=== PATIENT | female | born 1965 | race American Indian/Alaskan Native ===

== ENCOUNTER 2017-01-21 00:03 | Emergency (ER) | payer MEDICAID ==
[2017-01-21 01:30] LABS: Basophils % (Auto) 0.5 % (0.0-1.8); Hematocrit 42.3 % (30.3-42.9); Hemoglobin 14.1 gm/dl (10.1-14.3); Mean Corpuscular HGB Conc 33 % (30-34); Mean Corpuscular Hemoglobin 30 pg (28-32); Mean Corpuscular Volume 90 fl (79-97); Platelet Count 306 K/mm3 (140-440); Red Blood Count 4.68 M/mm3 (3.65-5.03); Red Cell Distribution Width 13.4 % (13.2-15.2); White Blood Count 17.9 K/mm3 (4.5-11.0)
[2017-01-21 01:48] LABS: Alanine Aminotransferase 16 units/L (7-56); Albumin 4.8 g/dL (3.9-5); Albumin/Globulin Ratio 1.5 %; Alkaline Phosphatase 80 units/L (35-129); Anion Gap 21 mmol/L; BUN/Creatinine Ratio 16.66; Blood Urea Nitrogen 15 mg/dL (7-17); Calcium 9.8 mg/dL (8.4-10.2); Carbon Dioxide 23 mmol/L (22-30); Glucose 104 mg/dL (65-100); Lipase 16 units/L (13-60); Potassium 3.6 mmol/L (3.6-5.0); Sodium 140 mmol/L (137-145); Total Protein 7.9 g/dL (6.3-8.2)
[2017-01-21 04:52] LABS: Urine Drugs of Abuse Note Disclamer
[2017-01-21 05:20] LABS: Bacteria,Urine 1+ /HPF (Negative); Bilirubin,Urine NEG (Negative); Blood,Urine SM (Negative); Ketones,Urine TR mg/dL (Negative); Leukocyte Esterase,Urine MOD (Negative); Nitrite,Urine NEG (Negative); Urobilinogen,Urine < 2.0 mg/dL (<2.0)
[2017-01-21 06:11] LABS: INR 0.96 (0.87-1.13)
--- NOTE | 2017-01-21 08:22 | Emergency Department Report ---
HPI - General Chief Complaint: Abdominal Pain Time Seen by Provider: 01/21/17 08:05 - HPI HPI: This is a 51-year-old Afro-Surinamese female presents to the emergency department with the need for a medical clearance/evaluation so that she can go to [facility] for detox for opiates, marijuana, cocaine, basically polysubstance abuse. She last was using late last night and early and this morning. Right now she just complains of feeling cold. She has a slightly chronic cough with some yellowish sputum. She denies any fever, chest pain, nausea, vomiting, diaphoresis. No recent travel or sick contacts at home. She has a history of hypertension. She does not have a primary care doctor. She has not taken anything for symptoms prior to presentation. No recent travel. Her boyfriend is being seen here with a chronic upper respiratory infection. ED Past Medical Hx - Past Medical History Previous Medical History?: Yes Hx Hypertension: Yes Additional medical history: Thyroid. Prolapsed Uterus - Surgical History Past Surgical History?: No - Social History Smoking Status: Current Every Day Smoker Substance Use Type: Alcohol, Heroin, Marijuana, Prescribed, Other ED Review of Systems ROS: Stated complaint: MED CLEARANCE Other details as noted in HPI Constitutional: chills. denies: fever Eyes: denies: eye pain, eye discharge, vision change ENT: denies: ear pain, throat pain Respiratory: cough. denies: shortness of breath Cardiovascular: denies: chest pain, palpitations Gastrointestinal: denies: abdominal pain, nausea, diarrhea Genitourinary: denies: urgency, dysuria, discharge Musculoskeletal: denies: back pain, joint swelling, arthralgia Skin: denies: rash, lesions Neurological: denies: headache, weakness, paresthesias Physical Exam - Physical Exam Vital Signs: Vital Signs 01/21/17 00:25 Temperature 98.4 F Pulse Rate 102 H Respiratory 20 Rate Blood Pressure 143/98 [Right] O2 Sat by Pulse 98 Oximetry Physical Exam: GENERAL: The patient is well-developed well-nourished. HEENT: Normocephalic. Atraumatic. Extraocular motions are intact. Patient has moist mucous membranes. Pupils equal reactive to light bilaterally. NECK: Supple. Trachea is mid line. CHEST/LUNGS: Clear to auscultation. There is no respiratory distress noted. HEART/CARDIOVASCULAR: Regular. There is no tachycardia. There is no gallop rub or murmur. ABDOMEN: Abdomen is soft, nontender. Patient has normal bowel sounds. There is no abdominal distention. SKIN: Skin is warm and dry. NEURO: The patient is awake, alert, and oriented. The patient is cooperative. The patient has no focal neurologic deficits. The patient has normal speech. Normal gait. MUSCULOSKELETAL: There is no tenderness or deformity. There is no limitation range of motion. There is no evidence of acute injury. ED Course Vital Signs 01/21/17 00:25 Temperature 98.4 F Pulse Rate 102 H Respiratory 20 Rate Blood Pressure 143/98 [Right] O2 Sat by Pulse 98 Oximetry ED Medical Decision Making - Lab Data Result diagrams: 01/21/17 01:11 01/21/17 01:11 - Radiology Data Radiology results: image reviewed interpreted by me: Chest x-ray did not show any acute process. Heart is normal shape and size. No effusions. No pneumothorax. No signs of pneumonia seen. - Medical Decision Making 51-year-old female presents to the emergency department mostly to be medically cleared so she can go to [facility] for detox from polysubstance abuse. She complains of an occasional cough with some productive sputum so a chest x-ray was done but does not show any pneumonia or any acute process. Vital signs stable throughout her ED course. Patient's labs are mostly unremarkable other than leukocytosis and urine drug screen. The UDS is positive for cocaine, marijuana, but that she and opiates. The patient has a leukocytosis of 17,000. However vital signs are stable including being afebrile. There is no sign of infection seen in the chest x-ray or urinalysis and the patient does not appear to have an active infection. I believe most likely the leukocytosis is her bodies response to the polysubstance abuse and/or withdrawal. Otherwise she appears medically cleared to go to an inpatient facility if she should chooses to do so. The crisis therapist checked on [facility] and the patient is not known but with her insurance they say she can walk and for intake evaluation if she wants to pursue detoxification. Patient does appear to want help and says she is going straight there. She's been encouraged to return to the ER with any acute distress. Critical Care Time: No Critical care attestation.: If time is entered above; I have spent that time in minutes in the direct care of this critically ill patient, excluding procedure time. ED Disposition Clinical Impression: Polysubstance abuse Disposition: DISCHARGED TO HOME OR SELFCARE Is pt being admited?: No Condition: Stable Instructions: Upper Respiratory Infection (ED), Polysubstance Abuse (ED) Additional Instructions: Please go straight to [facility] to see about help with your substance abuse detoxification. Return to the emergency department with any worsening of your symptoms or any acute distress. Please follow-up with a primary care doctor once you are able to do so. Referrals: [facility] [Outside] - 3-5 Days Time of Disposition: 09:49
[2017-01-21 10:01] VITALS: BP 138/92
--- NOTE | 2017-01-21 11:08 | XRay Report ---
PA and lateral chest: Cough. Routine views demonstrate mild thoracic spondylosis. On the frontal projection the lungs are clear and the hilar and mediastinal structures are unremarkable. There is no vascular congestion. In the lateral view there is a sharply defined smooth projection extending posterior from the posterior cardiac contour just below the hilum. It is unclear exactly what this represents but most likely is a vascular structure. I have no prior exams for comparison. Impression: Indeterminate finding in lateral projection as described. Comparison with any prior exams recommended if these can be made available. If not, consider CT scan to exclude pathology.
== END 2017-01-21 10:00 | disposition home or self-care (01) ==
LOC: ED 00:03
DX: F19.10 Other psychoactive substance abuse, uncomplicated (principal); I10 Essential (primary) hypertension; F17.200 Nicotine dependence, unspecified, uncomplicated; F12.10 Cannabis abuse, uncomplicated; F11.10 Opioid abuse, uncomplicated
CPT/HCPCS: 36415; 71020; 80053; 80307; 81001; 81025; 82140; 82805; 83690; 84443; 85025; 85610; 87040; 87086; 99284; G0480; 80320

== ENCOUNTER 2017-05-11 23:54 | Emergency (ER) | payer SELFPAY ==
[2017-05-12 00:57] LABS: Hematocrit 39.5 % (30.3-42.9); Hemoglobin 13.7 gm/dl (10.1-14.3); Mean Corpuscular HGB Conc 35 % (30-34); Mean Corpuscular Hemoglobin 31 pg (28-32); Mean Corpuscular Volume 91 fl (79-97); Platelet Count 255 K/mm3 (140-440); Red Blood Count 4.36 M/mm3 (3.65-5.03); Red Cell Distribution Width 13.1 % (13.2-15.2); White Blood Count 9.4 K/mm3 (4.5-11.0)
[2017-05-12 01:18] LABS: Alanine Aminotransferase 21 units/L (7-56); Albumin 4.5 g/dL (3.9-5); Albumin/Globulin Ratio 1.6 %; Alkaline Phosphatase 83 units/L (35-129); Anion Gap 17 mmol/L; BUN/Creatinine Ratio 15.71; Blood Urea Nitrogen 11 mg/dL (7-17); Calcium 8.9 mg/dL (8.4-10.2); Carbon Dioxide 27 mmol/L (22-30); Chloride 100.5 mmol/L (98-107); Glucose 90 mg/dL (65-100); Lipase 64 units/L (13-60); Potassium 4.2 mmol/L (3.6-5.0); Sodium 140 mmol/L (137-145); Total Protein 7.3 g/dL (6.3-8.2)
[2017-05-12 02:22] LABS: Basophils % (Manual) 0 % (0.0-1.8); Blastocytes % (Manual) 0 %; Eosinophils % (Manual) 0 % (0.0-4.3); Giant Platelets Rare; RBC Morphology Normal
[2017-05-12 02:23] LABS: Diff Status Complete
--- NOTE | 2017-05-12 09:18 | Cat Scan Report ---
CT OF THE ABDOMEN AND PELVIS WITHOUT CONTRAST HISTORY: Abdominal pain. TECHNIQUE: Helical CT without contrast. Sagittal and coronal reformatted images. FINDINGS: Within the limits of a noncontrast exam, the abdominal and pelvic viscera are within normal limits. The liver, biliary system, pancreas, spleen, kidneys, adrenal glands and bladder are unremarkable. The bowel loops are normal caliber and wall thickness. Normal appendix. The aorta is normal caliber. No ascites, bulky adenopathy or inflammatory changes. The lung bases are clear. Normal heart size. No suspicious bony lesion. IMPRESSION: Unremarkable noncontrast CT of the abdomen and pelvis.
--- NOTE | 2017-05-12 09:48 | Emergency Department Report ---
ED Abdominal Pain HPI - General Chief Complaint: Abdominal Pain Stated Complaint: AB PAIN/ MEDICAL CLEARNACE Time Seen by Provider: 05/12/17 08:00 Source: patient Mode of arrival: Ambulatory Limitations: No Limitations - History of Present Illness MD Complaint: abdominal pain -: month(s) (1) Location: periumbilical Radiation: none Migration to: no migration Severity: mild Severity scale (0 -10): 1 Quality: cramping, aching Consistency: intermittent Improves With: nothing Worsens With: nothing Associated Symptoms: denies: nausea, vomiting, diarrhea, fever, chills, constipation, dysuria, hematemesis, hematochezia, melena, hematuria, anorexia, syncope - Related Data Previous Rx's Medication Instructions Recorded Last Taken Type Penicillin Vk [Veetids TAB] 250 mg PO QID #40 tablet 05/12/17 Unknown Rx Allergies Allergy/AdvReac Type Severity Reaction Status Date / Time prochlorperazine Allergy Swelling Verified 01/21/17 00:53 [From Compazine] prochlorperazine edisylate Allergy Swelling Verified 01/21/17 00:53 [From Compazine] prochlorperazine maleate Allergy Swelling Verified 01/21/17 00:53 [From Compazine] ED Review of Systems ROS: Stated complaint: AB PAIN/ MEDICAL CLEARNACE Other details as noted in HPI Other: GENERAL: No weight change, fatigue, weakness, fever, chills, or night sweats SKIN: No changes in skin or hair, no itching, no rashes, no jaundice HEAD: No trauma, headache, or visual changes EYES: No blurriness, tearing, itching, acute visual loss, conjunctival discoloration, or scleral icterus EARS: No hearing loss, tinnitus, vertigo, or earache NOSE: No rhinorrhea, stuffiness, sneezing, itching, or epistaxis MOUTH: Reports toothache. Last dental visit remote. No bleeding gums, hoarseness, sore throat, or swelling CARDIAC: No new murmur, chest pain, palpitations, dyspnea on exertion, orthopnea , PND, or edema RESPIRATORY: No shortness of breath, wheeze, cough, sputum production, hemoptysis, pneumonia, asthma, bronchitis, or emphysema GI: Abdominal pain. No change in appetite, nausea, vomiting, dysphagia, change in bowel frequency, diarrhea, constipation, bleeding, hematemesis, melena , hematochezia URINARY: No frequency, urgency, polyuria, dysuria, hematuria, or incontinence MUSCULOSKELETAL: No muscle weakness, joint stiffness, decrease in range of motion, redness, swelling NEUROLOGIC: No loss of sensation, numbness, tingling, tremors, weakness, paralysis, seizures HEMATOLOGIC: No anemia, easy bruising, bleeding, petechiae, or purpura ENDOCRINE: No hot or cold intolerance, sweating, polyuria, polydipsia or, polyphagia no thyroid problems PSYCHIATRIC: No change in mood, no anxiety, no depression GENITAL: Female: No change in menstrual regularity, no frequency or dysmenorrhea ED Past Medical Hx - Past Medical History Previous Medical History?: Yes Hx Hypertension: Yes Additional medical history: Thyroid. Prolapsed Uterus - Surgical History Past Surgical History?: No - Social History Smoking Status: Current Every Day Smoker Substance Use Type: Alcohol, Marijuana - Medications Home Medications: Home Medications Medication Instructions Recorded Confirmed Last Taken Type Penicillin Vk [Veetids TAB] 250 mg PO QID #40 tablet 05/12/17 Unknown Rx ED Physical Exam - General Limitations: No Limitations - Other Other exam information: GENERAL: Patient in no acute distress HEAD: Normocephalic, atraumatic EYES: PERRLA, EOM intact, no scleral icterus, visual simpson and acuity wnl NOSE: No tenderness, discharge, sinus tenderness MOUTH: Dental caries. No erythema, bleeding, exudate HEART: Regular rate and rhythm, no murmur, S1-S2 are auscultated, pulses are symmetric LUNGS: No wheezing, rales, rhonchi, bilateral breath sounds ABDOMEN: Normal bowel sounds, no tenderness, no rebound, no guarding, no masses , no CVA tenderness MUSCULOSKELETAL: Normal joint range of motion, no redness, no swelling, no tenderness NEUROLOGIC: GCS 15, Alert and Oriented x3, Cranial nerves intact, normal sensation, normal strength, normal gait, no cerebellar deficit PSYCHIATRIC: Patient being difficult with nursing staff. No homicidal or suicidal ideation, no anxiety, no depression, no hallucinations SKIN: Skin is warm and dry, no wounds, no rashes ED Course Vital Signs 05/12/17 05/12/17 00:23 10:20 Temperature 98.1 F 98.7 F Pulse Rate 79 82 Respiratory 22 20 Rate Blood Pressure 149/98 Blood Pressure 135/70 [Right] O2 Sat by Pulse 95 100 Oximetry ED Medical Decision Making - Lab Data Result diagrams: 05/12/17 00:31 05/12/17 00:31 - Radiology Data Radiology results: report reviewed - Medical Decision Making Patient comfortable. Updated with results. Plan discharge with outpatient follow up. Patient agrees with plan and will return if symptoms worsen. Critical care attestation.: If time is entered above; I have spent that time in minutes in the direct care of this critically ill patient, excluding procedure time. ED Disposition Clinical Impression: Dental caries Abdominal pain Qualifiers: Abdominal location: generalized Qualified Code(s): R10.84 - Generalized abdominal pain Disposition: TO HOME OR SELFCARE Is pt being admited?: No Condition: Stable Instructions: Dental Caries (ED), Abdominal Pain (ED) Prescriptions: Penicillin Vk [Veetids TAB] 250 mg PO QID #40 tablet Referrals: [facility] [Provider Group] - 2-3 Days PRIMARY CARE,MD [Primary Care Provider] - 2-3 Days [facility] [Outside] - 2-3 Days Time of Disposition: 09:46
[2017-05-12 10:14] LABS: Bacteria,Urine 1+ /HPF (Negative); Bilirubin,Urine NEG (Negative); Blood,Urine NEG (Negative); Ketones,Urine NEG (Negative); Leukocyte Esterase,Urine NEG (Negative); Nitrite,Urine NEG (Negative); Protein,Urine <15 mg/dL mg/dL (Negative); RBC,Urine < 1.0 /HPF (0.0-6.0); Urobilinogen,Urine < 2.0 mg/dL (<2.0); WBC,Urine < 1.0 /HPF (0.0-6.0)
[2017-05-12 10:21] VITALS: BP 135/70
== END 2017-05-12 10:36 | disposition home or self-care (01) ==
LOC: ED 23:54
DX: K02.9 Dental caries, unspecified (principal); R10.33 Periumbilical pain; F17.210 Nicotine dependence, cigarettes, uncomplicated; F12.10 Cannabis abuse, uncomplicated; I10 Essential (primary) hypertension; Z88.8 Allergy status to other drugs, medicaments and biological substances
CPT/HCPCS: 36415; 74176; 80053; 81001; 83690; 84703; 85007; 85025; 99284

== ENCOUNTER 2018-04-12 21:22 | Emergency (ER) | payer MEDICAID ==
[2018-04-12 22:58] LABS: Bacteria,Urine 1+ /HPF (Negative); Bilirubin,Urine NEG (Negative); Blood,Urine NEG (Negative); Color,Urine Yellow (Yellow); Protein,Urine <15 mg/dL mg/dL (Negative); Urobilinogen,Urine < 2.0 mg/dL (<2.0)
[2018-04-12 23:14] LABS: Methadone Screen,Urine PRESUMPTIVE NEGATIVE
[2018-04-12 23:27] LABS: Basophils % (Auto) 0.8 % (0.0-1.8); Eosinophils # (Auto) 0.2 K/mm3 (0.0-0.4); Eosinophils % (Auto) 2.4 % (0.0-4.3); Hematocrit 40.8 % (30.3-42.9); Lymphocytes # (Auto) 3.1 K/mm3 (1.2-5.4); Lymphocytes % (Auto) 50.4 % (13.4-35.0); Mean Corpuscular HGB Conc 34 % (30-34); Mean Corpuscular Hemoglobin 32 pg (28-32); Mean Corpuscular Volume 93 fl (79-97); Monocytes # (Auto) 0.3 K/mm3 (0.0-0.8); Monocytes % (Auto) 5.5 % (0.0-7.3); Platelet Count 279 K/mm3 (140-440); Red Blood Count 4.37 M/mm3 (3.65-5.03); Red Cell Distribution Width 13.3 % (13.2-15.2)
[2018-04-12 23:38] LABS: Amphetamine Screen,Urine PRESUMPTIVE POSITIVE; Benzodiazepines Screen,Urine PRESUMPTIVE POSITIVE; Cannabinoid Screen,Urine PRESUMPTIVE POSITIVE; Cocaine Screen,Urine PRESUMPTIVE POSITIVE; Opiate Screen,Urine PRESUMPTIVE POSITIVE
[2018-04-12 23:58] LABS: BUN/Creatinine Ratio 11; Blood Urea Nitrogen 8 mg/dL (7-17); Calcium 9.4 mg/dL (8.4-10.2); Hemolysis Index 9
--- NOTE | 2018-04-13 01:07 | Emergency Department Report ---
ED Medical Clearance HPI - General Chief complaint: Medical Clearance Stated complaint: MH EVAL Time Seen by Provider: 04/13/18 00:58 Source: patient, family Mode of arrival: Ambulatory - History of Present Illness Initial comments: Presents to the ER from [place] for medical clearance. Pt has a history of polysubstance abuse. She last used yesterday. Her drug of choice is narcotics and marijuana. Home medications: Previous Rx's Medication Instructions Recorded Last Taken Type Penicillin Vk [Veetids TAB] 250 mg PO QID #40 tablet 05/12/17 Unknown Rx Dicyclomine [Bentyl] 10 mg PO TID PRN #20 capsule 04/13/18 Unknown Rx Ondansetron [Zofran Odt] 4 mg PO TID PRN #15 tab.rapdis 04/13/18 Unknown Rx cloNIDine [Catapres] 0.2 mg PO TID PRN #15 tablet 04/13/18 Unknown Rx Allergies/Adverse reactions: Allergies Allergy/AdvReac Type Severity Reaction Status Date / Time prochlorperazine Allergy Swelling Verified 01/21/17 00:53 [From Compazine] prochlorperazine edisylate Allergy Swelling Verified 01/21/17 00:53 [From Compazine] prochlorperazine maleate Allergy Swelling Verified 01/21/17 00:53 [From Compazine] ED Review of Systems ROS: Stated complaint: MH EVAL Other details as noted in HPI Comment: All other systems reviewed and negative ED Past Medical Hx - Past Medical History Previous Medical History?: Yes Hx Hypertension: Yes Additional medical history: Thyroid. Prolapsed Uterus - Surgical History Past Surgical History?: No - Social History Smoking Status: Current Every Day Smoker Substance Use Type: Alcohol, Cocaine, Heroin, Marijuana, Non Opiate Pain - Medications Home Medications: Home Medications Medication Instructions Recorded Confirmed Last Taken Type Penicillin Vk [Veetids TAB] 250 mg PO QID #40 tablet 05/12/17 Unknown Rx Dicyclomine [Bentyl] 10 mg PO TID PRN #20 capsule 04/13/18 Unknown Rx Ondansetron [Zofran Odt] 4 mg PO TID PRN #15 tab.rapdis 04/13/18 Unknown Rx cloNIDine [Catapres] 0.2 mg PO TID PRN #15 tablet 04/13/18 Unknown Rx ED Physical Exam - General Limitations: No Limitations General appearance: in no apparent distress, appears intoxicated, lethargic - Head Head exam: Present: atraumatic, normocephalic - Eye Eye exam: Present: normal appearance, PERRL, EOMI - ENT ENT exam: Present: mucous membranes moist - Neck Neck exam: Present: normal inspection - Respiratory Respiratory exam: Present: normal lung sounds bilaterally. Absent: respiratory distress - Cardiovascular Cardiovascular Exam: Present: regular rate, normal rhythm. Absent: systolic murmur, diastolic murmur, rubs, gallop - GI/Abdominal GI/Abdominal exam: Present: soft, normal bowel sounds. Absent: distended, tenderness, guarding, rebound - Extremities Exam Extremities exam: Present: normal inspection - Back Exam Back exam: Present: normal inspection - Neurological Exam Neurological exam: Present: oriented X3 - Psychiatric Psychiatric exam: Present: normal affect, normal mood - Skin Skin exam: Present: warm, dry, intact, normal color. Absent: rash ED Course Vital Signs 04/12/18 22:10 Temperature 98.2 F Pulse Rate 73 Respiratory 16 Rate Blood Pressure 104/81 O2 Sat by Pulse 98 Oximetry ED Medical Decision Making - Lab Data Result diagrams: 04/12/18 22:58 04/12/18 22:58 - Medical Decision Making 52 yo female with pmhx of polysubstance abuse that presents for medical clearance. VSS. Pt is well appearing. She appears to be clinically intoxicated. Blood alcohol is neg. UDS is positive for multiple substances. She is in the ER with her son who she lives with. He feels comfortable taking her home. I have low suspicion for emergent pathology at this time. They will follow back up with [place] and other drug detox programs. She has been provided with clonidine/Bentyl/Zofran to help with her narcotic withdrawal symptoms. Patient does not take benzodiazepines chronically and she only drinks one can of beer a day. I do not think the patient requires admission for alcohol or benzodiazepine detox. - Differential Diagnosis intoxication, mood disorder, hypoglycemia, trauma ED Disposition Clinical Impression: Polysubstance abuse Disposition: DC-01 TO HOME OR SELFCARE Is pt being admited?: No Does the pt Need Aspirin: No Condition: Stable Additional Instructions: Please talk with [facility] or [facility] about finding a drug detox program. Prescriptions: cloNIDine [Catapres] 0.2 mg PO TID PRN #15 tablet PRN Reason: Anxiety Dicyclomine [Bentyl] 10 mg PO TID PRN #20 capsule PRN Reason: Pain, Mild (1-3) Ondansetron [Zofran Odt] 4 mg PO TID PRN #15 tab.rapdis PRN Reason: Nausea Referrals: PRIMARY CARE,MD [Primary Care Provider] - 3-5 Days
[2018-04-13 02:57] VITALS: BP 110/78
== END 2018-04-13 01:45 | disposition home or self-care (01) ==
LOC: ED 21:22
DX: F12.129 Cannabis abuse with intoxication, unspecified (principal); F19.129 Other psychoactive substance abuse with intoxication, unspecified; I10 Essential (primary) hypertension; F17.200 Nicotine dependence, unspecified, uncomplicated; Z88.8 Allergy status to other drugs, medicaments and biological substances
CPT/HCPCS: 36415; 80048; 80307; 81001; 85025; 99283; G0480; 80320